=== PATIENT | male | born 1975 | race Caucasian/White ===

== ENCOUNTER → 2018-05-09 13:37 | Outpatient (CLI) | payer SELFPAY ==
[2018-05-09 15:35] LABS: International Normalized Ratio 2.3; Prothrombin Time (Protime)PT. 25.5 SECONDS (11.7-14.9)
== END ==
DX: D68.62 Lupus anticoagulant syndrome (principal); I26.99 Other pulmonary embolism without acute cor pulmonale; I82.409 Acute embolism and thrombosis of unspecified deep veins of unspecified lower extremity
CPT/HCPCS: 36415; 85610

== ENCOUNTER 2018-05-27 11:32 | Outpatient (RCR) | payer SELFPAY ==
[2018-05-16 16:14] LABS: International Normalized Ratio 3.1; Prothrombin Time (Protime)PT. 31.8 SECONDS (11.7-14.9)
[2018-05-21 13:36] LABS: International Normalized Ratio 2.9; Prothrombin Time (Protime)PT. 30.5 SECONDS (11.7-14.9)
[2018-05-27 12:31] LABS: International Normalized Ratio 2.7; Prothrombin Time (Protime)PT. 28.8 SECONDS (11.7-14.9)
== END 2018-05-31 11:18 | disposition home or self-care (01) ==
LOC: LAB 11:32
DX: D68.62 Lupus anticoagulant syndrome (principal); I26.99 Other pulmonary embolism without acute cor pulmonale; I82.409 Acute embolism and thrombosis of unspecified deep veins of unspecified lower extremity
CPT/HCPCS: 36415; 85610

== ENCOUNTER 2018-07-01 13:45 | Outpatient (RCR) | payer SELFPAY ==
[2018-06-03 12:46] LABS: International Normalized Ratio 2.7; Prothrombin Time (Protime)PT. 29.2 SECONDS (11.7-14.9)
[2018-06-20 13:02] LABS: International Normalized Ratio 1.7; Prothrombin Time (Protime)PT. 19.8 SECONDS (11.7-14.9)
[2018-06-24 13:08] LABS: International Normalized Ratio 2.1; Prothrombin Time (Protime)PT. 23.2 SECONDS (11.7-14.9)
[2018-07-01 16:28] LABS: International Normalized Ratio 1.8
== END 2018-07-01 14:45 | disposition home or self-care (01) ==
LOC: LAB 13:45
DX: D68.62 Lupus anticoagulant syndrome (principal); I26.99 Other pulmonary embolism without acute cor pulmonale; I82.409 Acute embolism and thrombosis of unspecified deep veins of unspecified lower extremity
CPT/HCPCS: 36415; 85610

== ENCOUNTER 2018-07-11 10:40 | Outpatient (RCR) | payer OTHER, SELFPAY ==
[2018-07-11 12:10] LABS: International Normalized Ratio 2.4; Prothrombin Time (Protime)PT. 25.9 SECONDS (11.7-14.9)
== END 2018-07-11 11:40 | disposition home or self-care (01) ==
LOC: LAB 10:40
DX: D68.62 Lupus anticoagulant syndrome (principal); I26.99 Other pulmonary embolism without acute cor pulmonale; I82.409 Acute embolism and thrombosis of unspecified deep veins of unspecified lower extremity
CPT/HCPCS: 36415; 85610

== ENCOUNTER 2018-08-09 11:35 | Outpatient (RCR) | payer OTHER, SELFPAY ==
[2018-08-09 13:31] LABS: International Normalized Ratio 2.6; Prothrombin Time (Protime)PT. 27.6 SECONDS (11.7-14.9)
== END 2018-08-29 14:32 | disposition home or self-care (01) ==
LOC: LAB 11:35
DX: D68.62 Lupus anticoagulant syndrome (principal); I26.99 Other pulmonary embolism without acute cor pulmonale; I82.409 Acute embolism and thrombosis of unspecified deep veins of unspecified lower extremity
CPT/HCPCS: 36415; 85610

== ENCOUNTER → 2018-08-28 16:44 | Outpatient (CLI) | payer OTHER, SELFPAY ==
[2018-08-28 15:33] VITALS: BMI 44.3
[2018-08-28 17:37] LABS: Absolute Lymphocyte Count 1.67 X10^3/ul (0.83-4.51); Absolute Neutrophil Count 4.2 X10^3/uL (2.0-7.7); Basophil# 0.03 X10^3/uL; Basophil% 0.5 % (0-1); Eosinophils% 1.5 % (0-5); Hematocrit 42.5 % (40-54); Hemoglobin 14.7 g/dl (13.0-16.5); Lymphocyte # 1.67 X10^3/ul (4.0); Lymphocyte % 25.8 % (19-41); Mean Corp Hgb Conc 34.6 g/gl (32-36); Mean Corpuscular Hgb 30.5 pg (27.0-32.0); Mean Corpuscular Volume 88.2 fL (80-94); Mean Platelet Vol. 10.6 fl (6.2-12.0); Monocyte# 0.42 X10^3/uL; Monocyte% 6.5 % (0-10); Neutrophil # 4.17 X10^3/uL (2.7-7.7); Neutrophil % 64.5 % (47-70); Platelet Count 251 K/mm3 (150-450); RBC Distribution Width SD 41.4 fl (35.1-43.9); Red Blood Count 4.82 M/mm3 (4.6-6.2); White Blood Count 6.5 K/mm3 (4.4-11.0)
[2018-08-28 17:41] LABS: POSITIVE COUNT NO; POSITIVE DIFFERENTIAL NO; POSITIVE MORPHOLOGY NO
[2018-08-28 17:59] LABS: ALB/GLOB Ratio 1.1 RATIO (0.9-2.4); AST(SGOT) 35 U/L (15-37); Alanine Aminotransfer ALT/SGPT 71 U/L (16-61); Albumin, Serum 3.8 g/dL (3.2-5.0); Alkaline Phosphatase 57 U/L (45-117); Anion Gap 8 (5-15); BUN 21 mg/dL (7-18); BUN/Creat Ratio 22.6 RATIO (10-20); CRP < 2.90 mg/L (0.0-3.0); Calcium,Total 8.6 mg/dL (8.5-10.1); Chloride 104 mmol/L (98-107); Creatinine, Serum 0.93 mg/dL (0.70-1.30); EST Glomerular Filtration Rate 94 mL/min (>60); Est Glom Filt Rate - Afr Amer 114 mL/min (>60); Globulin 3.4 g/dL (2.2-4.2); Glucose 91 mg/dL (74-106); LDH 229 U/L (87-241); Protein, Total 7.2 g/dL (6.4-8.2); Sodium Level 139 mmol/L (136-145); Uric Acid 6.4 mg/dL (3.5-7.2)
[2018-08-28 18:01] LABS: Erythrocyte Sedimentation Rate 2 mm/hr (0-15)
[2018-08-28 18:19] LABS: International Normalized Ratio 2.4; Prothrombin Time (Protime)PT. 26.4 SECONDS (11.7-14.9)
[2018-08-28 18:20] LABS: Partial Thromboplast Time 51.3 Seconds (24.1-36.2)
[2018-09-01 10:14] LABS: ANTINUCLEAR ANTIBODIES DIRECT Positive (Negative)
== END ==
PROVIDERS: Referring Provider Internal Medicine Medical Oncology; Visit Provider Internal Medicine Medical Oncology
DX: Z79.01 Long term (current) use of anticoagulants (principal); Z86.711 Personal history of pulmonary embolism; Z86.718 Personal history of other venous thrombosis and embolism
CPT/HCPCS: 36415; 80053; 83615; 84550; 85025; 85610; 85652; 85730; 86038; 86140

== ENCOUNTER → 2018-10-22 14:22 | Outpatient (CLI) | payer OTHER, SELFPAY ==
[2018-09-04 14:48] VITALS: BMI 43.8
[2018-10-22 15:21] LABS: Color, Urine Yellow (Yellow); Glucose, Dipstick Normal (Normal); Ketone-Dipstick Negative (Negative); Leukocyte Esterase-Dipstick Negative /ul (Negative); Nitrite-Dipstick Negative (Negative); Occult Blood-Urine Negative /ul (Negative); Protein-Dipstick Negative (Negative); Urine Bilirubin Dipstick Negative (Negative); Urine Clarity Clear (Clear); Urine Urobilinogen Normal (Normal)
[2018-10-22 15:30] LABS: EXAGEN MAILED SPECIMEN
[2018-10-22 15:41] LABS: Absolute Lymphocyte Count 2.02 X10^3/ul (0.83-4.51); Absolute Neutrophil Count 4.9 X10^3/uL (2.0-7.7); Basophil# 0.03 X10^3/uL; Basophil% 0.4 % (0-1); Eosinophil# 0.13 X10^3/uL; Eosinophils% 1.7 % (0-5); Hematocrit 44.6 % (40-54); Hemoglobin 15.5 g/dl (13.0-16.5); Lymphocyte # 2.02 X10^3/ul (4.0); Lymphocyte % 25.8 % (19-41); Mean Corp Hgb Conc 34.8 g/gl (32-36); Mean Corpuscular Hgb 30.1 pg (27.0-32.0); Mean Corpuscular Volume 86.6 fL (80-94); Mean Platelet Vol. 10.5 fl (6.2-12.0); Monocyte# 0.69 X10^3/uL; Monocyte% 8.8 % (0-10); Neutrophil # 4.91 X10^3/uL (2.7-7.7); Neutrophil % 62.8 % (47-70); Platelet Count 253 K/mm3 (150-450); RBC Distribution Width CV 13.1 % (11.6-14.6); Red Blood Count 5.15 M/mm3 (4.6-6.2); White Blood Count 7.8 K/mm3 (4.4-11.0)
[2018-10-22 15:55] LABS: POSITIVE COUNT NO; POSITIVE DIFFERENTIAL NO; POSITIVE MORPHOLOGY NO
[2018-10-22 16:08] LABS: ALB/GLOB Ratio 1.2 RATIO (0.9-2.4); AST(SGOT) 47 U/L (15-37); Alanine Aminotransfer ALT/SGPT 73 U/L (16-61); Albumin, Serum 4.2 g/dL (3.2-5.0); Alkaline Phosphatase 70 U/L (45-117); Anion Gap 7 (5-15); BUN 12 mg/dL (7-18); BUN/Creat Ratio 14.1 RATIO (10-20); Calcium,Total 8.9 mg/dL (8.5-10.1); Chloride 103 mmol/L (98-107); Creatinine, Serum 0.85 mg/dL (0.70-1.30); EST Glomerular Filtration Rate 104 mL/min (>60); Est Glom Filt Rate - Afr Amer 126 mL/min (>60); Globulin 3.5 g/dL (2.2-4.2); Glucose 75 mg/dL (74-106); Potassium 3.8 mmol/L (3.5-5.1); Protein, Total 7.7 g/dL (6.4-8.2); Protein, Urine (Random) < 6.0 mg/dL (<11.9); Sodium Level 137 mmol/L (136-145)
== END ==
PROVIDERS: Family Provider Surgery; PCP Surgery; Referring Provider Internal Medicine Rheumatology; Visit Provider Internal Medicine Rheumatology
DX: D68.61 Antiphospholipid syndrome (principal); R76.0 Raised antibody titer; R76.8 Other specified abnormal immunological findings in serum; I26.99 Other pulmonary embolism without acute cor pulmonale; I10 Essential (primary) hypertension; G47.33 Obstructive sleep apnea (adult) (pediatric)
CPT/HCPCS: 36415; 80053; 81002; 82570; 84156; 85025

== ENCOUNTER → 2019-02-04 15:15 | Outpatient (CLI) | payer OTHER, SELFPAY ==
[2018-11-27 14:13] VITALS: BMI 42.1
[2019-02-04 17:32] LABS: Absolute Lymphocyte Count 1.74 X10^3/uL (0.83-4.51); Absolute Neutrophil Count 4.9 X10^3/uL (2.0-7.7); Basophil# 0.05 X10^3/uL; Basophil% 0.7 % (0-1); Eosinophil# 0.14 X10^3/uL; Eosinophils% 1.9 % (0-5); Hematocrit 43.8 % (40-54); Hemoglobin 14.8 g/dL (13.0-16.5); Lymphocyte # 1.74 X10^3/ul (4.0); Lymphocyte % 23.1 % (19-41); Mean Corp Hgb Conc 33.8 g/dL (32-36); Mean Corpuscular Hgb 29.8 pg (27.0-32.0); Mean Corpuscular Volume 88.3 fL (80-94); Mean Platelet Vol. 10.4 fl (6.2-12.0); Monocyte# 0.61 X10^3/uL; Monocyte% 8.1 % (0-10); NRBC Flagged by Analyzer 0 % (0-5); Neutrophil # 4.93 X10^3/uL (2.7-7.7); Neutrophil % 65.4 % (47-70); Platelet Count 241 K/mm3 (150-450); RBC Distribution Width CV 12.4 % (11.6-14.6); RBC Distribution Width SD 40.1 fl (35.1-43.9); Red Blood Count 4.96 M/mm3 (4.6-6.2); White Blood Count 7.5 K/mm3 (4.4-11.0)
[2019-02-04 18:01] LABS: ALB/GLOB Ratio 1.2 RATIO (0.9-2.4); AST(SGOT) 38 U/L (15-37); Alanine Aminotransfer ALT/SGPT 79 U/L (16-61); Alkaline Phosphatase 51 U/L (45-117); Anion Gap 7 (5-15); BUN 13 mg/dL (7-18); BUN/Creat Ratio 14.6 RATIO (10-20); Calcium,Total 8.9 mg/dL (8.5-10.1); Chloride 103 mmol/L (98-107); Creatinine, Serum 0.89 mg/dL (0.70-1.30); EST Glomerular Filtration Rate 99 mL/min (>60); Est Glom Filt Rate - Afr Amer 120 mL/min (>60); Globulin 3.3 g/dL (2.2-4.2); Glucose 86 mg/dL (74-106); Potassium 3.6 mmol/L (3.5-5.1); Protein, Total 7.3 g/dL (6.4-8.2); Sodium Level 138 mmol/L (136-145)
== END ==
PROVIDERS: Referring Provider Internal Medicine Rheumatology; Visit Provider Internal Medicine Rheumatology
DX: D68.61 Antiphospholipid syndrome (principal); I26.99 Other pulmonary embolism without acute cor pulmonale; I10 Essential (primary) hypertension; G47.33 Obstructive sleep apnea (adult) (pediatric)
CPT/HCPCS: 36415; 80053; 85025

== ENCOUNTER → 2019-03-04 15:34 | Outpatient (CLI) | payer OTHER, SELFPAY ==
[2018-11-27 14:13] VITALS: BMI 42.1
[2019-03-04 16:23] LABS: Absolute Lymphocyte Count 1.46 X10^3/uL (0.83-4.51); Absolute Neutrophil Count 4.6 X10^3/uL (2.0-7.7); Basophil# 0.05 X10^3/uL; Basophil% 0.7 % (0-1); Eosinophil# 0.11 X10^3/uL; Eosinophils% 1.6 % (0-5); Hematocrit 44.8 % (40-54); Hemoglobin 15.5 g/dL (13.0-16.5); Lymphocyte # 1.46 X10^3/ul (4.0); Lymphocyte % 21.4 % (19-41); Mean Corp Hgb Conc 34.6 g/dL (32-36); Mean Corpuscular Hgb 29.5 pg (27.0-32.0); Mean Corpuscular Volume 85.3 fL (80-94); Mean Platelet Vol. 10.1 fl (6.2-12.0); Monocyte# 0.51 X10^3/uL; Monocyte% 7.5 % (0-10); NRBC Flagged by Analyzer 0 % (0-5); Neutrophil # 4.57 X10^3/uL (2.7-7.7); Platelet Count 234 K/mm3 (150-450); RBC Distribution Width CV 12.5 % (11.6-14.6); RBC Distribution Width SD 38.7 fl (35.1-43.9); Red Blood Count 5.25 M/mm3 (4.6-6.2); White Blood Count 6.8 K/mm3 (4.4-11.0)
[2019-03-04 16:30] LABS: International Normalized Ratio 3.4; Prothrombin Time (Protime)PT. 34.5 SECONDS (11.7-14.9)
[2019-03-04 16:46] LABS: ALB/GLOB Ratio 1.1 RATIO (0.9-2.4); AST(SGOT) 39 U/L (15-37); Alanine Aminotransfer ALT/SGPT 88 U/L (16-61); Albumin, Serum 4.1 g/dL (3.2-5.0); Alkaline Phosphatase 57 U/L (45-117); Anion Gap 7 (5-15); BUN 14 mg/dL (7-18); BUN/Creat Ratio 15.5 RATIO (10-20); Calcium,Total 8.9 mg/dL (8.5-10.1); Chloride 105 mmol/L (98-107); EST Glomerular Filtration Rate 97 mL/min (>60); Est Glom Filt Rate - Afr Amer 117 mL/min (>60); Globulin 3.7 g/dL (2.2-4.2); Glucose 97 mg/dL (74-106); Potassium 3.7 mmol/L (3.5-5.1); Protein, Total 7.8 g/dL (6.4-8.2); Sodium Level 136 mmol/L (136-145)
[2019-03-07 08:08] LABS: Dilute Prothrombin Time (dPT) 132.6 sec (0.0-55.0); Dilute Russell Viper Venom 95.9 sec (0.0-47.0); Hexagonal Phase Phospholipid 2 20 sec (0-11); PTT-LA Mix 68.3 sec (0.0-48.9); Thrombin Time 25.4 sec (0.0-23.0); dPT Confirm Ratio 1.67 Ratio (0.00-1.40)
[2019-03-07 12:09] LABS: Interpretation Comment: (.)
== END ==
PROVIDERS: Referring Provider Internal Medicine Medical Oncology; Visit Provider Internal Medicine Medical Oncology
DX: I82.90 Acute embolism and thrombosis of unspecified vein (principal); R76.0 Raised antibody titer; Z79.01 Long term (current) use of anticoagulants
CPT/HCPCS: 36415; 80053; 85025; 85610; 85730

== ENCOUNTER 2022-05-01 10:35 | Emergency (ER) | payer BC, SELFPAY ==
[2022-05-01 10:36] VITALS: BP 134/72; PULSE 73; RESP 16; TEMP 36.8; O2SAT 95; BMI 44.7
--- NOTE | 2022-05-01 11:02 | CT_ITS ---
STUDY: CT BRAIN WITHOUT CONTRAST REASON FOR EXAM: Male, 47 years old. Head trauma due to a fall. RADIATION DOSAGE (If Supplied By Facility): CTDIvol = ( 44.99 ) mGy, DLP = ( 863.60 ) mGycm TECHNIQUE: Transaxial CT imaging of the brain was performed without administration of intravenous contrast material. Individualized dose optimization techniques were used for this CT. COMPARISON: No relevant priors. FINDINGS: Normal soft tissue structures. Normal calvarium. Normal size ventricles and extra-axial spaces for the patient''s age. Normal white matter tracts of the cerebral hemispheres. Normal basal ganglia and thalami. Normal brainstem. Normal cerebellum. There is no intracranial hemorrhage. There are no findings of an acute ischemic infarction. Normal visualized paranasal sinuses. CT/Brain/Head without Contrast IMPRESSION: Normal unenhanced CT scan of the brain. Electronically Signed: Aldo Rosen MD at 11:54 EDT ,
--- NOTE | 2022-05-01 11:03 | ED.VIS.FALL ---
HPI HPI - Fall History of Present Illness Chief Complaint: Fall Occured/Mechanism Fall down steps #: 4-5 Usually ambulates: Without assistance Pain/Injury Location: right thigh, head Quality of Pain: Aching Current Severity: Mild Maximum Severity: Moderate Worsened by: Walking, bending right knee Relieved by: Remaining still Associated Symptoms Associated Symptoms: Negative for Parasthesias, Weakness, Loss of function, Inability to ambulate, Loss of consciousness or Amnesia Narrative Narrative: Patient states he slid while walking to some steps to go down, and missed stepped as a result, falling down 4-5 steps accidentally. He mainly fell onto his right side, injuring his right thigh, and then hit the back of his head on the floor that was wood at the end of the fall. No loss of consciousness. 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 His last INR check was maybe 2 weeks ago. He denies any bleeding. No headache, nausea, vomiting, vision changes, focal neurologic symptoms, injury to the trunk or upper extremities. He is able to walk now but requires a cane in order to bear weight with his right lower extremity which hurts in the thigh. He can bend it but states he feels muscle spasms in the thigh/quadriceps. PFSH [facility] Medical History Dyspnea on exertion Encounter for education Lupus anticoagulant disorder Obese Presence of IVC filter Pulmonary emboli Saddle embolus Sleep apnea Thrombocytopenia Home Medications lisinopril 20 mg-hydrochlorothiazide 25 mg tablet 10 - 12.5 mg PO DAILY #90 tabs 09/04/18 [Rx Last Taken Unknown] warfarin 2.5 mg tablet 2.5 mg PO DAILY 30 days #30 tabs 10/10/21 [Rx Last Taken Unknown] cyclophosphamide 50 mg tablet 200 mg PO DAILY Lupus anticoagulant syndrome #120 tabs 11/17/21 [Rx Last Taken Unknown] ondansetron 4 mg disintegrating tablet 4 mg PO Q8H PRN nausea and vomiting #30 tabs 11/17/21 [Rx Last Taken Unknown] warfarin 5 mg tablet See Rx Instructions .Route .COMPLEX #60 tabs 04/10/22 [Rx Last Taken Unknown] Allergy/AdvReac Type Severity Reaction Status Date / Time Penicillins Allergy Rash Verified 05/01/22 10:37 Social History Smoking Status: Never smoker Electronic Cigarette Use: not used second hand exposure: No alcohol intake: current alcohol intake frequency: a few times a week Alcohol type: beer substance use type: does not use ROS ROS ED Constitutional Constitutional ED: Denies chills or fever(s) Eyes Eyes: Denies change in vision or diplopia ENT ENT ED: Denies ear pain, epistaxis, facial pain or rhinorrhea Cardiovascular Cardiovascular: Denies chest pain or palpitations Respiratory/Chest Respiratory/Chest: Denies cough or dyspnea Gastrointestinal Gastrointestinal: Denies abdominal pain, diarrhea, melena, nausea or vomiting Genitourinary Genitourinary ED: Denies dysuria or hematuria Musculoskeletal Musculoskeletal: Reports extremity pain; Denies back pain or neck pain Integumentary Denies abscess, Abrasions, laceration or rash Neurologic Neurologic: Denies confusion, headache(s), paresthesias or weakness Hematologic/Lymphatic Hematologic/Lymphatic: Reports easy bleeding and easy bruising EXAM Physical Exam Const Vital Signs: 05/01/22 10:36 05/01/22 13:18 Temperature 98.2 F Temperature Source Temporal Pulse Rate 73 Respiratory Rate 16 16 Blood Pressure 134/72 H Blood Pressure Mean 92 Pulse Ox 95 Oxygen Delivery Method Room Air Room Air Positive well nourished, well developed and obese General Appearance ED: well developed and NAD Nutritional Appearance: obese HEENT Reports TM's clear and nasal mucous membranes and turbinates normal HEENT Narrative: Right TM completely occluded by cerumen atraumatic Face and Sinus: Negative for facial tenderness Tympanic Membrane ED: Yes TM's clear Eyes PERRL and EOMs intact bilaterally Visual Acuity: other Other Details: no entrapment or pain with extraocular movements Neck full ROM and supple General: Negative for tenderness Chest Wall inspection of chest normal and palpation of chest normal Chest: symmetrical chest wall rise; Negative for crepitus or tenderness Resp normal respiratory effort and clear to auscultation bilaterally Percussion: other equal BS bilat Cardio no murmurs Rate: regular rate Rhythm: regular rhythm GI normal to inspection, nondistended, normoactive bowel sounds, soft to palpation and non-tender GI Narrative: No truncal ecchymoses/signs of trauma Back/Spine normal ROM Cervical Spine: Negative for cervical spine tenderness Thoracic Spine / Upper Back: Negative for thoracic spinal tenderness Lumbar Spine / Lower Back: Negative for lumbar spinal tenderness Extremity normal to inspection and full ROM Extremity Narrative: Mildly tender in the right quadriceps, more laterally in the vastus lateralis but there were no deformities, he is full range of motion of the hip and knee without any pain in either 1 of those joints in the right lower extremity, the pelvis is stable to AP compression and nontender. Full range of motion without any tenderness or pain of the other 3 extremities and no tenderness elsewhere in the right lower. General Extremety ED: Yes tenderness Neuro oriented x3, CN's II-XII intact bilaterally, moves all extremities, no focal motor deficits and no sensory deficits noted [place] Coma Scale: document GCS findings Spontaneous Obeys Commands Oriented 15 Sensorium / Orientation: awake and alert Psych mental status grossly normal and thought process normal Skin no wounds Lesions: no lesions Rashes: no rashes MDM MDM MDM Narrative Medical decision making narrative: Femur x-ray 4 views of mitral rotation normal. Radiology in agreement. CT of the head is negative, his INR is 2.6 therapeutic. He does not have symptoms of a concussion. He is reassured, offered a dose of tramadol for his discomfort, and he will take Tylenol at home. I think most of his pain is muscular I do not think this is an occult hip fracture, we discussed reasons to return comfortable with that plan. Lab Data Attestation: I reviewed the patient's lab results. Labs: Laboratory Results - last 24 hr 05/01/22 11:18 PT 27.7 H INR 2.6 Radiography Diagnostic Testing: Clinical Impression(s) from Imaging Studies Brain CT 05/01/22 11:02 IMPRESSION: Normal unenhanced CT scan of the brain. Electronically Signed: Aldo Rosen MD at 11:54 EDT , Femur X-Ray 05/01/22 11:45 IMPRESSION: Normal x-ray examination of the femur. Electronically Signed: Aldo Rosen MD at 11:56 EDT , Discharge Plan Triage Chief Complaint: Fall Other Complaint: Lower Extremity Injury ED Provider: Og Lassiter Dx/Rx/DC Orders Clinical Impression: Closed head injury without concussion, Contusion of right thigh, Fall from slip, trip, or stumble, Anticoagulated Instructions: ED Soft Tissue Contusion, ED Head Injury (Adult) Prescriptions: No Action cyclophosphamide 50 mg tablet 200 mg PO DAILY Qty: 120 2RF Rx Instructions: give with food (meal/snack) ondansetron 4 mg tablet,disintegrating 4 mg PO Q8H PRN (Reason: nausea and vomiting) Qty: 30 0RF lisinopril-hydrochlorothiazide 1 EACH tablet 10 - 12.5 mg PO DAILY Qty: 90 3RF warfarin 2.5 mg tablet 2.5 mg PO DAILY 30 Days Qty: 30 3RF Rx Instructions: 11.25 mg daily warfarin 5 mg tablet See Rx Instructions .ROUTE .COMPLEX Qty: 60 0RF Dose Instruction: take 2 tablets by mouth once daily Rx Instructions: take 2 tablets by mouth once daily Primary Care Provider: Care Physician,No Primary Referrals: Doctor,Your [Non-Staff] - As Needed Disposition Disposition: Home, Self Care
--- NOTE | 2022-05-01 11:45 | RAD_ITS ---
STUDY: X-RAY - RIGHT FEMUR REASON FOR STUDY: Male, 47 years old. Injury/fall TECHNIQUE: 4 view(s) of the femur. COMPARISON: None. FINDINGS: Normal visualized femur. Normal visualized soft tissue structure. RAD/Femur Min 2 Views IMPRESSION: Normal x-ray examination of the femur. Electronically Signed: Aldo Rosen MD at 11:56 EDT ,
[2022-05-01 11:57] LABS: International Normalized Ratio 2.6; Prothrombin Time (Protime)PT. 27.7 SECONDS (11.7-14.9)
--- NOTE | 2022-05-01 13:04 | CM.ED ---
SW Note MITUL reviewed tracker and noted that patient has no PCP. MITUL met with patient and he reports he has a PCP however, he can not recall the name of his PCP. No further SW needs at this time. SW remains available. Miriam OSBORNE
[2022-05-01 13:18] VITALS: RESP 16
[2022-05-01] MEDS: traMADol 50 MG Tablet PO (13:42)
== END 2022-05-01 13:43 | disposition home or self-care (01) ==
PROVIDERS: Emergency Provider Emergency Medicine; Visit Provider Emergency Medicine
DX: S09.90XA Unspecified injury of head, initial encounter (principal); S70.11XA Contusion of right thigh, initial encounter; E66.9 Obesity, unspecified; G47.30 Sleep apnea, unspecified; W10.9XXA Fall (on) (from) unspecified stairs and steps, initial encounter; Z79.01 Long term (current) use of anticoagulants; Z86.718 Personal history of other venous thrombosis and embolism
CPT/HCPCS: 70450; 73552; 85610; 99283

== ENCOUNTER 2022-05-29 12:59 | Outpatient (RCR) | payer BC, SELFPAY ==
[2022-05-29 11:35] LABS: International Normalized Ratio 2.5; Prothrombin Time (Protime)PT. 26.8 SECONDS (11.7-14.9)
[2022-05-29 19:23] LABS: Xtra Tube EP Lab EXTRA TUBE
== END 2022-05-31 23:59 ==
LOC: PAVLAB 12:59
PROVIDERS: Visit Provider Nurse Practitioner Family
DX: I82.409 Acute embolism and thrombosis of unspecified deep veins of unspecified lower extremity (principal)
CPT/HCPCS: 36415; 85610

== ENCOUNTER 2023-06-06 19:01 | Observation (INO) | payer BC, SELFPAY ==
[2023-06-06] VITALS (8 sets, daily range): BP systolic 101–152; BP diastolic 77–96; PULSE 92–118; RESP 18–24; TEMP 36.3–36.8; O2SAT 92–98; BMI 45.6; BMI 45.1
--- NOTE | 2023-06-06 19:15 | CT_ITS ---
We are attempting to reach an attending provider to discuss findings. An addendum with communication details will be sent when the communication is complete. STUDY: CTA CHEST REASON FOR EXAM: Male, 48 years old. dyspnea and PE hx RADIATION DOSAGE (If Supplied By Facility): CTDIvol = ( 19.79 ) mGy, DLP = ( 1229.70 ) mGycm TECHNIQUE: The examination was performed with the intravenous administration of IV 100mL Isovue-370. Post-processing of the angiographic images was performed, with multiplanar reformation and 3D reconstruction. Individualized dose optimization techniques were used for this CT. COMPARISON: None. FINDINGS: Unremarkable thyroid. Large acute pulmonary emboli distal right and left main pulmonary artery extending into left upper and lower lobar arteries, right upper, middle, and lower lobar arteries with extension into apical left upper segment, anterior right upper segment, medial right middle lobe segment, and multiple left lower lobe segments. No aortic dissection or aneurysmal dilatation. Normal heart and pericardium. Abnormal RV LV ratio of 2.3. No densely calcified coronary atherosclerosis. No mediastinal or hilar adenopathy. Unremarkable esophagus. No airspace consolidation, effusion, pneumothorax. No pulmonary infarct. Normal osseous structures. Hepatic steatosis. CT/CTA Chest W/WO Contrast IMPRESSION: Large bilateral distal main pulmonary artery emboli extending into all lobar branches and multiple segmental branches without evidence of right heart strain. No evidence of acute airspace disease. Hepatic steatosis. Electronically Signed: Anand Whitehead MD at 20:48 EST ,
--- NOTE | 2023-06-06 19:17 | EDS_ITS ---
HPI History of Present Illness Chief Complaint: Shortness of Breath Informant: patient Onset/Context/Timing Onset: Today and Hours Context: gradual Timing: Continuous Quality: Positive for Dyspnea on exertion Current Severity: Mild Maximum Severity: Moderate Worsened by: Exertion Relieved by: Rest Associated Symptoms cough Chest Pain: Positive for None Narrative Narrative: 48-year-old male history of prior PEs and DVTs secondary to lupus anticoagulant. Has an IVC filter. Was on warfarin because another blood thinner was not working. They took him off of it 2+ months ago. He believes he may have another PE. Denies any chest pain. Says he is short of breath and has accelerated heart rate. His pulse ox at home was in the low 80s. He denies any hemoptysis. PE Risk Factors: Positive for Prior DVT or PE; Negative for Cancer, OCP + Smoking + > 35, Recent immobilization, Recent surgery or Recent travel Prior similar symptoms: Yes Recent Illness/Hospitalization: No PFSH PFSH Medical History Dyspnea on exertion Encounter for education Lupus anticoagulant disorder Obese Presence of IVC filter Pulmonary emboli Saddle embolus Sleep apnea Thrombocytopenia Home Medications lisinopril 20 mg-hydrochlorothiazide 25 mg tablet 10 - 12.5 mg (0.2222 - 0.2778 x 20-25 mg) PO DAILY #90 tabs 09/04/18 [Rx Last Taken Unknown] ondansetron 4 mg disintegrating tablet 4 mg PO Q8H PRN nausea and vomiting #30 tabs 11/17/21 [Rx Last Taken Unknown] warfarin 2.5 mg tablet 2.5 mg .Route .COMPLEX #30 tabs 06/06/23 [Rx Last Taken Unknown] warfarin 5 mg tablet See Rx Instructions .Route .COMPLEX #60 tabs 06/06/23 [Rx Last Taken Unknown] Allergy/AdvReac Type Severity Reaction Status Date / Time Penicillins Allergy Rash Verified 06/06/23 19:03 Surgical History H/O right knee surgery Social History Smoking Status: Never smoker Electronic Cigarette Use: not used second hand exposure: No alcohol intake: current alcohol intake frequency: a few times a week Alcohol type: beer substance use type: does not use ROS ROS ED ROS Narrative Shortness of breath. Accelerated heart rate. No chest pain. No hemoptysis. Review of Systems ROS Unobtainable: Denies due to encephalopathy Constitutional Constitutional ED: Denies chills or fever(s) Eyes Eyes: Denies blurry vision ENT ENT ED: Denies ear pain Cardiovascular Cardiovascular: Reports racing heartbeat; Denies chest pain or palpitations Respiratory/Chest Respiratory/Chest: Reports cough, dyspnea and dyspnea on exertion Gastrointestinal Gastrointestinal: Denies abdominal pain Genitourinary Genitourinary ED: Denies dysuria or hematuria Musculoskeletal Musculoskeletal: Denies arthralgias Integumentary Denies abscess Neurologic Neurologic: Denies headache(s) Psychiatric Psychiatric: Denies anxiety Endocrine Endocrinology: Denies cold intolerance Hematologic/Lymphatic Hematologic/Lymphatic: Denies easy bleeding, easy bruising or lymphadenopathy Allergic/Immunologic Allergic/Immunologic ED: Denies mouth swelling, tongue swelling or urticaria EXAM Physical Exam Narrative Exam Narrative: Well-appearing 48-year-old male. Vital signs are stable. Pulse ox is 94% on room air. Sitting up in bed relaxes heart rate 118. He does not look septic or toxic. No distress. H EENT exam unremarkable. Moist weeks membranes. Neck nontender no JVD. Lungs clear to auscultation bilaterally. Heart tachycardic rate about 120 no murmur. Chest wall nontender. Abdomen soft nontender. Moving all 4 extremities. Calves are nontender without edema or cords. Neurologically is awake and alert with no focal motor deficits. Const Vital Signs: 06/06/23 19:02 06/06/23 19:22 Temperature 97.4 F L Temperature Source Temporal Pulse Rate 118 H Respiratory Rate 20 H Respiratory Effort Normal Respiratory Depth Normal Respiratory Pattern Normal Blood Pressure 152/90 H Blood Pressure Mean 110 Pulse Ox 94 Oxygen Delivery Method Room Air Room Air Positive well nourished and well developed; Negative for cachectic, contractures or unkempt General Appearance ED: well developed and NAD; Negative for unkempt, cachectic, contractures or pallor Nutritional Appearance: Negative for cachectic HEENT Reports moist mucous membranes; Denies dry mucous membranes atraumatic; Negative for trauma or tenderness Mouth ED: No dry mucous membranes Mouth: No dry mucous membranes Eyes PERRL and EOMs intact bilaterally General Eye ED: Negative for pale conjunctiva or scleral icterus Neck no lymphadenopathy, supple, no meningeal signs and no JVD General: Negative for tenderness Lymph Lymphatic: Negative for other Chest Wall Chest: Negative for other Resp normal respiratory effort and clear to auscultation bilaterally Effort and Inspection: Negative for pain with movement Auscultation: Negative for rales, rhonchi or wheezes Cardio regular rhythm, S1 normal heart sound, S2 normal heart sound and no murmurs; Negative for regular rate Rate: tachycardic GI non-tender, non-distended and no masses Inspection: Negative for other Palpation: soft; Negative for tender or guarding Back/Spine no CVA tenderness and normal to inspection General Back: Negative for CVA tenderness Extremity normal to inspection General Extremety ED: Negative for edema or tenderness General Extremity: Negative for edema Neuro oriented x3 and CN's II-XII intact bilaterally Sensorium / Orientation: alert, oriented to person, oriented to place and oriented to time; Negative for orientation impaired, confused, lethargic or stuporous Speech: speech normal Motor Exam: strength 5/5 throughout Psych mental status grossly normal Appearance: Negative for unkempt Attitude: No agitated Mood & Affect: Negative for depressed, anxious or tearful Thought Process: normal thought process Skin no wounds and skin turgor normal General Skin Exam: Negative for jaundice or pallor Lesions: no lesions Rashes: no rashes MDM MDM MDM Narrative Medical decision making narrative: 48-year-old male history of multiple prior PEs and DVTs with lupus anticoagulant. 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 Believes he may have another PE. Will undergo cardiac/PE workup with a CTA. History & Record Review Discussion w/independent historian: Patient Additional record(s) reviewed:: Prior inpatient record, Prior outpatient record, Prior ED visit and No prior records Lab Data Attestation: I reviewed the patient's lab results. Lab results narrative: CBC normal. White count of 9. H&H of 15 and 44. Platelets slightly low at 133. Electrolytes show sodium 135. Gap 6. Normal BUN of 17 creatinine 0.9. Glucose 106. Troponin slightly elevated 85. Labs: Laboratory Results - last 24 hr 06/06/23 19:18 WBC 9.5 RBC 5.22 Hgb 15.6 Hct 44.9 MCV 86.0 MCH 29.9 MCHC 34.7 RDW Std Deviation 39.3 RDW Coeff of [place] 12.6 Plt Count 133 L MPV 9.9 Immature Gran % (Auto) 0.800 Neut % (Auto) 73.8 H Lymph % (Auto) 16.1 L [place] % (Auto) 7.0 Eos % (Auto) 1.6 Baso % (Auto) 0.7 Absolute Neuts (auto) 7.0 Absolute Lymphs (auto) 1.53 Nucleated RBC % 0 Sodium 135 L Potassium 3.8 Chloride 107 Carbon Dioxide 22.0 Anion Gap 6 BUN 17 Creatinine 0.91 Estim Creat Clear Calc 108.96 Est GFR (MDRD) Af Amer 115 Est GFR (MDRD) Non-Af 95 BUN/Creatinine Ratio 18.7 Glucose 106 Calcium 9.3 Troponin I High Sens 85 H Rhythm Strip Rhythm Strip: Sinus Tach Rate: 102 Ectopy: None EKG Initial EKG: Attestation: I personally reviewed and interpreted this EKG as follows: Interpretation: No Acute Injury Pattern and Sinus Tachycardia Comments: Tachycardia rate of 102. No acute signs of OR or ischemia. Discharge Plan Triage Chief Complaint: Shortness of Breath ED Provider: Robert Conley Dx/Rx/DC Orders Prescriptions: No Action ondansetron 4 mg tablet,disintegrating 4 mg PO Q8H PRN (Reason: nausea and vomiting) Qty: 30 0RF lisinopril-hydrochlorothiazide 1 EACH tablet 10 - 12.5 mg PO DAILY Qty: 90 3RF warfarin 2.5 mg tablet 2.5 mg .ROUTE .COMPLEX Qty: 30 1RF Rx Instructions: 2.5 mg; warfarin 5 mg tablet See Rx Instructions .ROUTE .COMPLEX Qty: 60 0RF Dose Instruction: take 2 tablets by mouth once daily Rx Instructions: take 2 tablets by mouth once daily Primary Care Provider: Care Physician,No Primary Referrals: Care Physician,No Primary [Primary Care Provider] -
[2023-06-06 19:28] LABS: Absolute Lymphocyte Count 1.53 X10^3/uL (0.83-4.51); Basophil# 0.07 X10^3/uL; Basophil% 0.7 % (0-1); Eosinophil# 0.15 X10^3/uL; Eosinophils% 1.6 % (0-5); Hematocrit 44.9 % (40-54); Hemoglobin 15.6 g/dL (13.0-16.5); Lymphocyte # 1.53 X10^3/ul (0.83-4.51); Lymphocyte % 16.1 % (19-41); Mean Corp Hgb Conc 34.7 g/dL (32-36); Mean Corpuscular Hgb 29.9 pg (27.0-32.0); Mean Platelet Vol. 9.9 fl (6.2-12.0); Monocyte# 0.67 X10^3/uL; NRBC Flagged by Analyzer 0 % (0-5); Neutrophil # 7.03 X10^3/uL (2.7-7.7); Neutrophil % 73.8 % (47-70); Platelet Count 133 K/mm3 (150-450); RBC Distribution Width CV 12.6 % (11.6-14.6); RBC Distribution Width SD 39.3 fl (35.1-43.9); Red Blood Count 5.22 M/mm3 (4.6-6.2); White Blood Count 9.5 K/mm3 (4.4-11.0)
[2023-06-06 19:43] LABS: Anion Gap 6 (5-15); BUN 17 mg/dL (7-18); BUN/Creat Ratio 18.7 RATIO (10-20); Calcium,Total 9.3 mg/dL (8.5-10.1); Chloride 107 mmol/L (98-107); Creatinine, Serum 0.91 mg/dL (0.70-1.30); EST Glomerular Filtration Rate 95 mL/min (>60); Est Glom Filt Rate - Afr Amer 115 mL/min (>60); Estimated Creatinine Clearance 108.96 ml/min; Glucose 106 mg/dL (74-106); Potassium 3.8 mmol/L (3.5-5.1); Sodium Level 135 mmol/L (136-145); Troponin-I HS 85 pg/mL (3.0-78.0)
--- NOTE | 2023-06-06 21:56 | HP.PCM.HOS_ITS ---
[facility] - General General Date of Admission: 06/06/23 Date of Service: 06/06/23 Chief Complaint: SOB. 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 Mr. Adeola russo reports his symptoms began approximately 1 day prior to admission with the abrupt onset of dyspnea on exertion that progressed to shortness of breath at rest which was very similar to his previous pulmonary emboli. He also admits to associated accelerated heart rate with an oxygen saturation in the low 80% range which caused him to come in to the ER for further evaluation and treatment. He denies associated chest pain, fever, chills, nausea, vomiting, cough, hemoptysis, recent travel, recent surgery or recent immobilization. He further explained that he was on Coumadin because the other direct oral anticoagulants were apparently not working and his typical dose of Coumadin was 11.5 mg daily. He also mentions that Lovenox has worked for him in the past. In the ER a CT scan of the chest was positive for evidence of pulmonary emboli complicated by clinical evidence of acute hypoxic respiratory insufficiency in the setting of known lupus anticoagulant disorder and failed trial off of Coumadin for anticoagulation compounded by non-STEMI type II with elevated troponin of 85 pg/mL present on admission likely due to acute cardiac strain and he was then admitted to the general medical floor for ongoing care for stay that is expected to be greater than 48 hours. [facility] Medical History (Updated 06/06/23 @ 22:[address] Jin Murray, DO) Dyspnea on exertion Encounter for education Lupus anticoagulant disorder Obese Presence of IVC filter Pulmonary emboli Saddle embolus Sleep apnea Thrombocytopenia Home Medications lisinopril 20 mg-hydrochlorothiazide 25 mg tablet 10 - 12.5 mg (0.2222 - 0.2778 x 20-25 mg) PO DAILY #90 tabs 09/04/18 [Rx Last Taken Unknown] lisinopril 10 mg-hydrochlorothiazide 12.5 mg tablet 1 tab PO QHS high blood pressure 06/06/23 [History Last Taken 06/05/23] warfarin 2.5 mg tablet 2.5 mg .Route .COMPLEX #30 tabs 06/06/23 [Rx Last Taken Unknown] warfarin 5 mg tablet See Rx Instructions .Route .COMPLEX #60 tabs 06/06/23 [Rx Last Taken Unknown] Allergy/AdvReac Type Severity Reaction Status Date / Time Penicillins Allergy Rash Verified 06/06/23 19:03 Surgical History H/O right knee surgery Social History household members: spouse housing: house number of children: 0 service: No current occupational status: unemployed pets and animals: Yes (3 cats) Smoking Status: Never smoker Electronic Cigarette Use: not used second hand exposure: No alcohol intake: current alcohol intake frequency: a few times a week Alcohol type: beer substance use type: does not use ROS ROS Narrative Review of systems: General: Denies fever or chills HENT: Denies headache, denies stuffy nose, denies sore throat EYES: Denies changes in vision Resp: Patient admits to shortness of breath made worse with exertion Cardiac: Denies chest pain but he does admit to heart racing GI: Denies abdominal pain, denies changes in bowel, had some nausea : Denies changes in urination Extremity: Denies swelling Musculoskeletal: Feels somewhat generally weak Neuro: Denies any numbness/tingling Heme: Denies any bleeding or bruising Skin: Denies rashes Psychiatric: No complaints voiced Endocrine: No polyuria The rest of the 14 point ROS was negative except for positives in HPI. Vital Signs Vital Signs Vital Signs: 06/06/23 19:02 06/06/23 19:22 06/06/23 19:15 Temperature 97.4 F L Temperature Source Temporal Pulse Rate 118 H Respiratory Rate 20 H Respiratory Effort Normal Respiratory Depth Normal Respiratory Pattern Normal Blood Pressure 152/90 H Blood Pressure Mean 110 Pulse Ox 94 94 Oxygen Delivery Method Room Air Room Air Room Air Weight Weight: 336 lb 7 oz Body Mass Index (BMI) 45.6 Physical Exam Const alert, oriented x3 and no apparent distress Constitutional Narrative: Patient is morbidly obese and appears short of breath. General Appearance: cooperative HEENT normocephalic, head/scalp atraumatic, hearing grossly normal bilaterally, moist oral mucous membranes and oropharynx normal Eyes PERRL, EOMs intact bilaterally and conjunctivae normal Neck no lymphadenopathy and supple Resp normal respiratory effort, no retractions, no use of accessory muscles and clear to auscultation bilaterally Cardio regular rate and regular rhythm GI normal to inspection, nondistended, normoactive bowel sounds, soft to palpation, non-tender and non-distended GI Narrative: Morbidly obese. Extremity normal to inspection and full ROM Skin Skin Narrative: Patient has no evidence of rash at this time. Neuro oriented x3, CN's II-XII intact bilaterally, moves all extremities and no focal motor deficits Sensorium / Orientation: awake, alert, oriented to person, oriented to place and oriented to time Speech: speech normal Motor Exam: strength 5/5 throughout Psych affect normal Results Medical Records Data Attestation: I reviewed the patient's medical records Lab / Micro Data Attestation: I reviewed the patient's lab results. 06/07/23 04:13 06/07/23 04:13 Labs: Laboratory Results - last 24 hr 06/06/23 19:18: WBC 9.5, RBC 5.22, Hgb 15.6, Hct 44.9, MCV 86.0, MCH 29.9, MCHC 34.7, RDW Std Deviation 39.3, RDW Coeff of Marixa 12.6, Plt Count 133 L, MPV 9.9, Immature Gran % (Auto) 0.800, Neut % (Auto) 73.8 H, Lymph % (Auto) 16.1 L, [place] % (Auto) 7.0, Eos % (Auto) 1.6, Baso % (Auto) 0.7, Absolute Neuts (auto) 7.0, Absolute Lymphs (auto) 1.53, Nucleated RBC % 0, Sodium 135 L, Potassium 3.8, Chloride 107, Carbon Dioxide 22.0, Anion Gap 6, BUN 17, Creatinine 0.91, Estim Creat Clear Calc 108.96, Est GFR (MDRD) Af Amer 115, Est GFR (MDRD) Non-Af 95, BUN/Creatinine Ratio 18.7, Glucose 106, Calcium 9.3, Troponin I High Sens 85 H Rhythm Strip Rhythm Strip: Sinus Tach Rate: 102 Ectopy: None Imagaing Radiology Impression Chest CTA 06/06/23 19:15 IMPRESSION: Large bilateral distal main pulmonary artery emboli extending into all lobar branches and multiple segmental branches without evidence of right heart strain. No evidence of acute airspace disease. Hepatic steatosis. Electronically Signed: Anand Whitehead MD at 20:48 EST , ADDENDUM: 06/06/232104 IMPRESSION: Large bilateral distal main pulmonary artery emboli extending into all lobar branches and multiple segmental branches without evidence of right heart strain. No evidence of acute airspace disease. Hepatic steatosis. N.B. : The above Results were Read Back by Anand Whitehead MD to Robert Conley MD, and understanding confirmed on 06/06/2023 20:58:22 (ET). Electronically Signed: Anand Whitehead MD at 20:48 EST , Assessment & Plan Assessment/Plan (1) Pulmonary embolism: QUALIFIERS: Pulmonary embolism type: multiple subsegmental (without acute cor pulmonale) Qualified Code(s): I26.94 - Multiple subsegmental pulmonary emboli without acute cor pulmonale (2) Lupus anticoagulant disorder: (3) Thrombocytopenia: (4) Morbid obesity: PLAN: Plan 1. 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 Continue IV heparin begun in the ER and adjust per protocol. Check echocardiogram to evaluate for evidence of potential right heart strain. Check lower extremity Dopplers to evaluate for residual clot burden in this patient with previous IVC filter. Give Tylenol as needed for pain or fever. It is important to note that his IVC filter has been removed a long time ago. Finally, we will consult Dr. Bragg of the hematology service to see this patient on rounds in the a.m. for further recommendations with help appreciated in advance. 2. Non-STEMI type II with elevated troponin of 85 pg/mL present on admission likely due to acute cardiac strain arising from #1 - Patient has no symptoms of acute coronary syndrome at this time. We will serial as troponin to be sure. 3. Chronic moderate thrombocytopenia 133 present on admission with patient intolerant to NOACs in the past - Check CBC daily to ensure continued stability of platelet count while on heparin. Hematology will be asked to optimize his treatment regimen to prevent recurrent VTE. 3. Morbid obesity; with BMI of 45.6 this admission - Weight loss will be recommended. Check TSH this admission. 4. Essential hypertension - Resume home medications as previous plus give as needed IV hydralazine for systolic blood pressure greater than 160 mmHg. 5. DVT prophylaxis - Patient already on IV heparin for #1. Total time: Approximately 55 minutes. Charges/Coding Visit Charges Inpatient E&M: 71637 Init Hosp L2
[2023-06-06 22:18] LABS: International Normalized Ratio 1.1; Prothrombin Time (Protime)PT. 14.2 SECONDS (11.7-14.9)
[2023-06-06] MEDS: Heparin Injection (Vial) 5,000 UNIT/ML VIAL 12000 UNIT IV (22:21)
--- NOTE | 2023-06-06 22:25 | ECHOCS_ITS ---
Reason For Study: PE w/LUPUS anticoag syndrome Procedure This was a 2D Doppler, Color Flow transthoracic echocardiogram. The study was technically difficult. Due to morbid obesity. Contrast injection was performed. Exam performed portable in patient room. Left Ventricle Normal LV size. Left ventricular systolic function is normal. The estimated ejection fraction is 60 %. No evidence for diastolic dysfunction. Right Ventricle Mildly dilated right ventricle. Mild to moderate global right ventricular systolic dysfunction. Atria The left and right atria are normal. Mitral Valve The mitral valve is structurally normal. No prolapse or stenosis seen. Tricuspid Valve Normal tricuspid valve. Trivial tricuspid valve insufficiency. Right ventricular systolic pressure estimated to be 40 mmHg. Aortic Valve The aortic valve is not well visualized in the short axis view. There is no aortic stenosis. No aortic valve insufficiency. Pulmonic Valve The pulmonic valve is not well visualized. Great Vessels Normal sized aortic root. Pericardium/Pleural No pericardial effusion. Medication Diluted definity 2.0ml given slow IV push to enhance endocardial definition. MMode/2D Measurements & Calculations LVIDd: 4.2 cm IVSd: 0.95 cm Ao root diam: 3.2 cm LVIDs: 2.9 cm LVPWd: 0.87 cm RVDd: 4.0 cm FS: 30.8 % LAV(MOD-bp): 63.6 ml LA A4 area: 21.8 cm2 LA dimension(2D): 3.1 cm LAV(MOD-bp) Indexed: 24.1 ml/m2 LAV(MOD-sp2): 54.5 ml LAV(MOD-sp4): 59.9 ml TAPSE: 2.1 cm Time Measurements MV dec time: 0.20 sec Doppler Measurements & Calculations MV E max johann: 69.3 cm/sec Lat Peak E' Johann: 15.7 cm/sec Med Peak E' Johann: 11.4 cm/sec MV A max johann: 59.3 cm/sec E/E' lat: 4.4 E/E' med: 6.1 MV E/A: 1.2 MV V2 max: 65.7 cm/sec MV P1/2t max johann: 61.9 cm/sec Ao V2 max: 117.8 cm/sec MV max P.7 mmHg MV P1/2t: 43.0 msec Ao max P.5 mmHg MV V2 mean: 42.3 cm/sec MV dec slope: 421.0 cm/sec2 Ao V2 mean: 84.2 cm/sec MV mean P.80 mmHg MVA(P1/2t): 5.1 cm2 Ao mean P.1 mmHg MV V2 VTI: 14.6 cm Ao V2 VTI: 19.1 cm AV (velocity ratio): 0.97 LV V1 max: 108.3 cm/sec PA V2 max: 79.2 cm/sec TR max johann: 298.2 cm/sec LV V1 max P.7 mmHg PA V2 mean: 56.8 cm/sec TR max P.6 mmHg LV V1 mean P.8 mmHg LV V1 mean: 80.2 cm/sec LV V1 VTI: 18.5 cm ECHO/Echo Complete W/ Contrast Interpretation Summary The estimated ejection fraction is 60 %. Mildly dilated right ventricle. Mild to moderate global right ventricular systolic dysfunction. Right ventricular systolic pressure estimated to be 40 mmHg. The study was technically difficult. Contrast injection was performed. Ordering Physician: Jin Murray Referring Physician: Rafael Hunter Performed By: Trish Delgado RDCS, RVT
[2023-06-06] MEDS: HEPARIN/D5w 25,000 UNITS 25,000 UNITS/250 ML IV.SOLN. 19 UNITS CONT INF (22:30)
--- NOTE | 2023-06-06 23:26 | VDLE_ITS ---
Reason For Study: HX Pulmonary Embolism RIGHT LEFT GSV is normal. GSV is normal. CFV is compressible, spontaneous, phasic, CFV is compressible, spontaneous, phasic, competent and demonstrates normal competent, and demonstrates normal augmentation. augmentation. FV is compressible, spontaneous, phasic, FV is compressible, spontaneous, phasic, competent and demonstrates normal competent and demonstrates normal augmentation. augmentation. POP V is compressible, spontaneous, phasic, POP V is compressible, spontaneous, phasic, competent and demonstrates normal competent and demonstrates normal augmentation. augmentation. T/P Trunk is compressible. T/P Trunk is compressible. Acute deep vein thrombosis is noted in the PTV is compressible. PTV. It is dilated and NONCOMPRESSIBLE. LT PerV is compressible. RT PerV is compressible. SSV Prox calf - Dist calf is dilated and NONCOMPRESSIBLE with intraluminal echoes. Procedure This is a venous duplex using B-mode, color flow and spectral Doppler. Exam performed portable in patient room. The exam was diagnostic. A preliminary report was called and/or faxed to PCU wellness consultant. VL/Venous Duplex US - [place] Extrem Interpretation Summary Acute deep vein thrombosis is noted in the right posterior tibial vein. Acute superficial vein thrombosis is noted in the right small saphenous vein. Deep veins of the left lower extremity are patent and compressible segmentally. There is no evidence of left lower extremity deep vein thrombosis. The bilateral great saphenous vei ns appear patent and compressible segmentally. Ordering Physician: Jin Murray Referring Physician: MD Elsa Rafael Performed By: Tim Ware, RVT
[2023-06-07] MEDS: 0.9% Normal Saline (1000mL) 1,000 ML 125 ML IV ×2 (00:19→08:01)
[2023-06-07] MEDS: hydroCHLOROthiazide 12.5mg 12.5 MG PO (00:30)
[2023-06-07] MEDS: Lisinopril 10 MG Tablet PO (00:30)
[2023-06-07 04:00] VITALS: BP 101/54; PULSE 87; RESP 18; TEMP 36.7; O2SAT 88; O2SAT 94
[2023-06-07 04:21] LABS: Absolute Neutrophil Count 5.2 X10^3/uL (2.0-7.7); Basophil# 0.07 X10^3/uL; Basophil% 0.9 % (0-1); Eosinophil# 0.18 X10^3/uL; Eosinophils% 2.3 % (0-5); Hematocrit 44.2 % (40-54); Lymphocyte % 23.8 % (19-41); Mean Corp Hgb Conc 33.9 g/dL (32-36); Mean Corpuscular Hgb 29.6 pg (27.0-32.0); Mean Corpuscular Volume 87.4 fL (80-94); Monocyte# 0.57 X10^3/uL; Monocyte% 7.1 % (0-10); NRBC Flagged by Analyzer 0 % (0-5); Neutrophil # 5.19 X10^3/uL (2.7-7.7); Neutrophil % 64.9 % (47-70); Platelet Count 124 K/mm3 (150-450); RBC Distribution Width CV 12.8 % (11.6-14.6); RBC Distribution Width SD 40.6 fl (35.1-43.9); Red Blood Count 5.06 M/mm3 (4.6-6.2)
[2023-06-07 04:44] LABS: International Normalized Ratio 1.2; Prothrombin Time (Protime)PT. 15.4 SECONDS (11.7-14.9)
[2023-06-07 04:45] LABS: Partial Thromboplast Time > 200.0 Seconds (24.1-36.2)
[2023-06-07 04:51] LABS: ALB/GLOB Ratio 1.1 RATIO (0.9-2.4); AST(SGOT) 40 U/L (15-37); Alanine Aminotransfer ALT/SGPT 83 U/L (16-61); Albumin, Serum 3.7 g/dL (3.2-5.0); Alkaline Phosphatase 58 U/L (45-117); Anion Gap 7 (5-15); BUN 13 mg/dL (7-18); BUN/Creat Ratio 13.6 RATIO (10-20); Calcium,Total 8.6 mg/dL (8.5-10.1); Chloride 106 mmol/L (98-107); Creatinine, Serum 0.95 mg/dL (0.70-1.30); EST Glomerular Filtration Rate 89 mL/min (>60); Est Glom Filt Rate - Afr Amer 108 mL/min (>60); Estimated Creatinine Clearance 104.37 ml/min; Globulin 3.5 g/dL (2.2-4.2); Glucose 100 mg/dL (74-106); Potassium 3.7 mmol/L (3.5-5.1); Protein, Total 7.2 g/dL (6.4-8.2); Sodium Level 137 mmol/L (136-145); Thyroid Stim Hormone (TSH) 1.48 uIU/mL (0.358-3.74)
[2023-06-07 06:00] VITALS: BMI 44.9
[2023-06-07 06:12] LABS: Troponin-I HS 125 pg/mL (3.0-78.0)
[2023-06-07 07:25] LABS: Troponin-I HS 74 pg/mL (3.0-78.0)
[2023-06-07 07:33] VITALS: O2SAT 97
--- NOTE | 2023-06-07 08:05 | PN.HOSP_ITS ---
Reason for Visit Reason for Visit: Diagnoses Lupus anticoagulant syndrome (06/07/23) Thrombocytopenia, unspecified (06/07/23) Morbid (severe) obesity due to excess calories (06/07/23) Multiple subsegmental pulmonary emboli without acute cor pulmonale (06/07/23) Other pulmonary embolism without acute cor pulmonale (06/07/23) Objective Data Objective Data Vital Signs: Vital Signs Temp Pulse Resp BP Pulse Ox O2 Del Method O2 Flow Rate 98.0 F 87 18 101/54 L 97 Room Air 2 06/07/23 04:00 06/07/23 04:00 06/07/23 04:00 06/07/23 04:00 06/07/23 07:33 06/07/23 07:33 06/07/23 04:30 Oxygen Flow Rate (L/min) 2 Oxygen Delivery Method Room Air Weight: 331 lb 2.149 oz Body Mass Index (BMI) 44.9 Intake & Output: Intake and Output for Last 24 Hours 06/05/23 06/06/23 06/07/23 23:59 23:59 23:59 Intake Total 1621.25 / 1621.25 Balance 1621.25 / 1621.25 Lab / Micro Data 06/07/23 04:13 06/07/23 04:13 Labs: Laboratory Results - last 24 hr 06/06/23 19:18: WBC 9.5, RBC 5.22, Hgb 15.6, Hct 44.9, MCV 86.0, MCH 29.9, MCHC 34.7, RDW Std Deviation 39.3, RDW Coeff of Marix[place] 12.6, Plt Count 133 L, MPV 9.9, Immature Gran % (Auto) 0.800, Neut % (Auto) 73.8 H, Lymph % (Auto) 16.1 L, [place] % (Auto) 7.0, Eos % (Auto) 1.6, Baso % (Auto) 0.7, Absolute Neuts (auto) 7.0, A bsolute Lymphs (auto) 1.53, Nucleated RBC % 0, PT 14.2, INR 1.1, APTT 57.0 H, Sodium 135 L, Potassium 3.8, Chloride 107, Carbon Dioxide 22.0, Anion Gap 6, BUN 17, Creatinine 0.91, Estim Creat Clear Calc 108.96, Est GFR (MDRD) Af Amer 115, Est GFR (MDRD) Non-Af 95, BUN/Creatinine Ratio 18.7, Glucose 106, Calcium 9.3, Troponin I High Sens 85 H 06/07/23 04:13: WBC 8.0, RBC 5.06, Hgb 15.0, Hct 44.2, MCV 87.4, MCH 29.6, MCHC 33.9, RDW Std Deviation 40.6, RDW Coeff of [place]ix[place] 12.8, Plt Count 124 L, MPV 10.0, Immature Gran % (Auto) 1.000 H, Neut % (Auto) 64.9, Lymph % (Auto) 23.8, [place] % (Auto) 7.1, Eos % (Auto) 2.3, Baso % (Auto) 0.9, Absolute Neuts (auto) 5.2, Ab solute Lymphs (auto) 1.90, Nucleated RBC % 0, PT 15.4 H, INR 1.2, APTT > 200.0 H*, Sodium 137, Potassium 3.7, Chloride 106, Carbon Dioxide 24.0, Anion Gap 7, BUN 13, Creatinine 0.95, Estim Creat Clear Calc 104.37, Est GFR (MDRD) Af Amer 108, Est GFR (MDRD) Non-Af 89, BUN/Creatinine Ratio 13.6, Glucose 100, Calcium 8.6, Total Bilirubin 1.00, AST 40 H, ALT 83 H, Alkaline Phosphatase 58, Troponin I High Sens 125 H*, Total Protein 7.2, Albumin 3.7, Globulin 3.5, Albumin/Globulin Ratio 1.1, TSH 1.48 06/07/23 06:53: Troponin I High Sens 74 Radiography Diagnostic Testing: Radiology Impression Chest CTA 06/06/23 19:15 IMPRESSION: Large bilateral distal main pulmonary artery emboli extending into all lobar branches and multiple segmental branches without evidence of right heart strain. No evidence of acute airspace disease. Hepatic steatosis. Electronically Signed: Anand Whitehead MD at 20:48 EST , ADDENDUM: 06/06/23 2105 IMPRESSION: Large bilateral distal main pulmonary artery emboli extending into all lobar branches and multiple segmental branches without evidence of right heart strain. No evidence of acute airspace disease. Hepatic steatosis. N.B. : The above Results were Read Back by Anand Whitehead MD to Robert Conley MD, and understanding confirmed on 06/06/2023 20:58:22 (ET). Electronically Signed: Anand Whitehead MD at 20:48 EST , Rhythm Strip Rhythm Strip: Sinus Tach Rate: 102 Ectopy: None Assessment & Plan Assessment/Plan (1) Pulmonary embolism: QUALIFIERS: Pulmonary embolism type: multiple subsegmental (without acute cor pulmonale) Qualified Code(s): I26.94 - Multiple subsegmental pulmonary emboli without acute cor pulmonale (2) Lupus anticoagulant disorder: (3) Thrombocytopenia: (4) Morbid obesity: PLAN: Plan 48-year-old gentleman with history of prior PE and DVT secondary to lupus anticoagulant, has IVC filter came to ED with shortness of breath, hypoxia, pulse ox low 80% on room air at home and sinus tachycardia. No hemoptysis. Patient was off of Coumadin for [address] shows large bilateral distal main pulmonary artery emboli extending into all lobar branches and multiple segmental branches without evidence of right heart strain. No evidence of acute airspace disease. 1. Pulmonary embolism; recurrent in the setting of known lupus anticoagulant disorder with failed trial off Coumadin -patient is admitted to monitored bed. Continue IV heparin begun in the ER and adjust per protocol. Check echocardiogram to evaluate for evidence of potential right heart strain. Check lower extremity Dopplers to evaluate for residual clot burden in this patient with previous IVC filter. Give Tylenol as needed for pain or fever. It is important to note that his IVC filter has been removed a long time ago. Finally, we will consult Dr. Bragg of the hematology service to see this patient on rounds in the a.m. for further recommendations with help appreciated in advance. Twelve-lead EKG shows sinus tachycardia at 102 bpm. 2. Non-STEMI type II with elevated troponin of 85 pg/mL present on admission likely due to acute cardiac strain arising from #1 - Patient has no symptoms of acute coronary syndrome at this time. We will serial as troponin to be sure. 3. Chronic moderate thrombocytopenia 133 present on admission with patient intolerant to NOACs in the past - Check CBC daily to ensure continued stability of platelet count while on heparin. Hematology will be asked to optimize his treatment regimen to prevent recurrent VTE. 3. Morbid obesity; with BMI of 45.6 this admission - Weight loss will be recommended. Check TSH this admission. 4. Essential hypertension - Resume home medications as previous plus give as needed IV hydralazine for systolic blood pressure greater than 160 mmHg. 5. DVT prophylaxis - Patient already on IV heparin for #1. Total time: Approximately 55 minutes.
--- NOTE | 2023-06-07 09:38 | DCINST_ITS ---
Discharge Instructions Diet Discharge Diet: Low fat / Low cholesterol and 2000 mg Sodium Diet Activity Discharge Activity: Return to Normal Activity Weight Bearing Status: Weight bearing as tolerated Dressing / Incision Call your doctor if you observe: Fever of 101 or Higher, Coldness, Increased Pain, Numbness or Tingling, Change in Color, Inability to urinate, Inability to have a bowel movement, Shortness of breath, Dizziness, Fainting spells, Swelling in the ankles, Chest pain, Prolonged hiccupping, Increased palpitations (irregular heartbeat) and Calf discomfort Follow Up Care When: IN 2 WEEKS Test Results: Test results from this visit will be discussed in further detail at your follow- up appointment, if applicable. Discharge Plan Admission Admit Date/Time: 06/06/23 22:18 Primary Reason for Your Visit: Acute main pulmonary artery to segmental level bilateral PE Attending Provider: Marcos Wilburn Primary Care Provider: Rafael Hunter Consulting Providers: Mikhail Bragg; Jin Murray Discharge Orders/Prescriptions Prescriptions: New warfarin [Jantoven] 5 mg Tablet 5 mg PO 1700 30 Days Qty: 30 1RF metoprolol succinate 25 mg tablet extended release 24 hr 12.5 mg PO DAILY Qty: 30 0RF enoxaparin 150 mg/mL syringe 150 mg subcut Q12@0600,1800 7 Days Qty: 14 0RF Continued lisinopril-hydrochlorothiazide 1 EACH tablet 10 - 12.5 mg PO DAILY Qty: 90 3RF Discontinued lisinopril-hydrochlorothiazide 10-12.5 mg tablet 1 tab PO QHS warfarin 2.5 mg tablet 2.5 mg .ROUTE .COMPLEX Qty: 30 1RF Hold Instructions: md stopped 2 months ago Rx Instructions: 2.5 mg; warfarin 5 mg tablet See Rx Instructions .ROUTE .COMPLEX Qty: 60 0RF Hold Instructions: md stopped 2 months ago Dose Instruction: take 2 tablets by mouth once daily Rx Instructions: take 2 tablets by mouth once daily Referrals / Follow Up: Drew Vivar DO [Med Staff - Active Staff] - Within 1 Month (FOR Recurrent PE AND RV dilatation?) Mikhail Bragg MD [Med Staff - Active Staff] - Within 1 Week Rafael Hunter MD [Primary Care Provider] - Care Physician,No Primary [Non-Staff] - Disposition Disposition (needs filled in before D/C Order can be placed): Home, Self Care
[2023-06-07 09:45] VITALS: BP 129/89; PULSE 97; RESP 16; TEMP 36.1; O2SAT 96
--- NOTE | 2023-06-07 09:52 | CON.PCM.ON_ITS ---
Assessment & Plan Assessment/Plan (1) Antiphospholipid antibody syndrome: Status: Chronic Code(s): D68.61 - Antiphospholipid syndrome Plan: The patient fulfills the diagnosis criteria for antiphospholipid antibodies syndrome (1 or more venous thromboembolic episodes, persistently elevated IgG anticardiolipin antibody [address] Although past episodes were clearly provoked this presenting episode of June 2023 had no obvious provoking event. Recommendation: 1. Long-term systemic anticoagulation, preferred warfarin (longer experience and APS) Target INR 2-3. 2. Initiate warfarin treatment with Lovenox cover for the first week at 1 Mg per kilogram body weight subcutaneously every 12 hours. 3. Follow-up with Dr. Bragg as outpatient in 1 week. Case discussed with hospitalist , Dr. Wilburn, and Dr Bragg. Amber Do MD Sociology Adjunct Instructor, [employer] [facility] Divisions of Medical Oncology & Hematology Department of Internal Medicine [place] [id number] This note was generated using a voice recognition system software. Although it was reviewed by the author prior to finalization, it may still contain incorrect words, spelling, and punctuation that were not noted when reviewing prior to saving. If a clinically significant typo or inaccurately typed phrase is noted, please notify the author. (2) Pulmonary embolism: Status: Chronic Code(s): I26.99 - Other pulmonary embolism without acute cor pulmonale Qualifiers: Pulmonary embolism type: multiple subsegmental (without acute cor pulmonale) Qualified Code(s): I26.94 - Multiple subsegmental pulmonary emboli without acute cor pulmonale (3) Thrombocytopenia: Status: Acute Code(s): D69.6 - Thrombocytopenia, unspecified HPI Consult Data Date of Service:: 06/07/23 PCP / Referring Provider: Dr. Rafael Hunter MD Attending: Dr. Marcos Wilburn MD Chief Complaint Chief Complaint: Dyspnea, recurrent pulmonary embolism History of Present Illness History of Present Illness: 48-year-old gentleman admitted with dyspnea and acute pulmonary embolus. He has a medical history notable for recurrent venous thromboembolic disease and low to moderate positive anticardiolipin antibody, IgG. Prior venous thromboembolic events were clearly provoked and patient was intermittently treated with systemic anticoagulation and immune suppressive therapy with no bleeding complications. He has been off systemic anticoagulation since January 2023. However this episode of June 2023 has not been preceded by any obvious provoking factors. Advanced Directives Power of Steel Handler: No Living Will: No [facility] Medical History (Updated 06/07/23 @ 10:[address] Amber Do MD) Antiphospholipid antibody syndrome Dyspnea on exertion Encounter for education Lupus anticoagulant disorder Obese Presence of IVC filter Pulmonary emboli Saddle embolus Sleep apnea Thrombocytopenia Home Medications lisinopril 20 mg-hydrochlorothiazide 25 mg tablet 10 - 12.5 mg (0.2222 - 0.2778 x 20-25 mg) PO DAILY #90 tabs 09/04/18 [Rx Last Taken Unknown] lisinopril 10 mg-hydrochlorothiazide 12.5 mg tablet 1 tab PO QHS high blood pressure 06/06/23 [History Last Taken 06/05/23] warfarin 2.5 mg tablet 2.5 mg .Route .COMPLEX #30 tabs 06/06/23 [Rx Last Taken Unknown] warfarin 5 mg tablet See Rx Instructions .Route .COMPLEX #60 tabs 06/06/23 [Rx Last Taken Unknown] Allergy/AdvReac Type Severity Reaction Status Date / Time Penicillins Allergy Rash Verified 06/06/23 19:03 Surgical History H/O right knee surgery Social History household members: spouse housing: house number of children: 0 service: No current occupational status: unemployed pets and animals: Yes (3 cats) Smoking Status: Never smoker Electronic Cigarette Use: not used second hand exposure: No alcohol intake: current alcohol intake frequency: a few times a week Alcohol type: beer substance use type: does not use ROS Constitutional Constitutional: Denies fever(s) ENT HEENT: Reports other Details: No nose or gum bleed Cardiovascular Cardiovascular: Reports dyspnea, dyspnea on exertion and tachypnea; Denies chest pain or edema Respiratory/Chest Respiratory/Chest: Reports dyspnea, dyspnea on exertion and other Details: No hemoptysis Gastrointestinal Gastrointestinal: Denies hematochezia, hemorrhoids or melena Genitourinary Genitourinary: Denies hematuria Integumentary Integumentary: Denies unusual bruising Neurologic Neurologic: Denies abnormal speech, focal weakness or numbness Hematologic/Lymphatic Hematologic/Lymphatic: Denies easy bleeding or easy bruising Physical Exam Narrative ECOG 0 Const alert, oriented x3 and no apparent distress General Appearance: cooperative and comfortable Orientation / Consciousness: oriented to person, oriented to place and oriented to time Nutritional Appearance: obese HEENT normocephalic Eyes no scleral icterus Neck no JVD Resp clear to auscultation bilaterally Cardio regular rate and regular rhythm GI soft to palpation and non-tender Extremity no clubbing, cyanosis or edema Skin no rashes or lesions noted Neuro CN's II-XII intact bilaterally, moves all extremities and no focal motor deficits Psych mental status grossly normal Vital Signs Temperature 97.0 F L 06/07/23 09:45 Temperature Source Temporal 06/07/23 09:45 Pulse Rate 97 06/07/23 09:45 Respiratory Rate 16 06/07/23 09:45 Respiratory Effort Normal, Non-Labored 06/07/23 04:30 Respiratory Depth Normal 06/07/23 04:30 Respiratory Pattern Normal 06/07/23 04:30 Blood Pressure 129/89 H 06/07/23 09:45 Blood Pressure Mean 102 06/07/23 09:45 Blood Pressure Source Monitor 06/07/23 09:45 Blood Pressure Position Semi-Fowlers 06/07/23 09:45 Blood Pressure Location Right Arm 06/07/23 09:45 Pulse Ox 96 06/07/23 09:45 Oxygen Delivery Method Room Air 06/07/23 09:45 Oxygen Flow Rate (L/min) 2 06/07/23 04:30 Laboratory Results - last 24 hr 06/06/23 19:18: WBC 9.5, RBC 5.22, Hgb 15.6, Hct 44.9, MCV 86.0, MCH 29.9, MCHC 34.7, RDW Std Deviation 39.3, RDW Coeff of Marixa 12.6, Plt Count 133 L, MPV 9.9, Immature Gran % (Auto) 0.800, Neut % (Auto) 73.8 H, Lymph % (Auto) 16.1 L, [place] % (Auto) 7.0, Eos % (Auto) 1.6, Baso % (Auto) 0.7, Absolute Neuts (auto) 7.0, Absolute Lymphs (auto) 1.53, Nucleated RBC % 0, PT 14.2, INR 1.1, APTT 57.0 H, Sodium 135 L, Potassium 3.8, Chloride 107, Carbon Dioxide 22.0, Anion Gap 6, BUN 17, Creatinine 0.91, Estim Creat Clear Calc 108.96, Est GFR (MDRD) Af Amer 115, Est GFR (MDRD) Non-Af 95, BUN/Creatinine Ratio 18.7, Glucose 106, Calcium 9.3, Troponin I High Sens 85 H 06/07/23 04:13: WBC 8.0, RBC 5.06, Hgb 15.0, Hct 44.2, MCV 87.4, MCH 29.6, MCHC 33.9, RDW Std Deviation 40.6, RDW Coeff of Marixa 12.8, Plt Count 124 L, MPV 10.0, Immature Gran % (Auto) 1.000 H, Neut % (Auto) 64.9, Lymph % (Auto) 23.8, [place] % (Auto) 7.1, Eos % (Auto) 2.3, Baso % (Auto) 0.9, Absolute Neuts (auto) 5.2, Absolute Lymphs (auto) 1.90, Nucleated RBC % 0, PT 15.4 H, INR 1.2, APTT > 200.0 H*, Sodium 137, Potassium 3.7, Chloride 106, Carbon Dioxide 24.0, Anion Gap 7, BUN 13, Creatinine 0.95, Estim Creat Clear Calc 104.37, Est GFR (MDRD) Af Amer 108, Est GFR (MDRD) Non-Af 89, BUN/Creatinine Ratio 13.6, Glucose 100, Calcium 8.6, Total Bilirubin 1.00, AST 40 H, ALT 83 H, Alkaline Phosphatase 58, Troponin I High Sens 125 H*, Total Protein 7.2, Albumin 3.7, Globulin 3.5, Albumin/Globulin Ratio 1.1, TSH 1.48 06/07/23 06:53: Troponin I High Sens 74 Laboratory Tests 11/09/21 03/02/22 03/30/22 10:55 09:25 09:50 Anti-Cardiolipin IgG Ab 23 H 45 H 42 H 03/26/23 09:04 Anti-Cardiolipin IgG Ab 52 H Laboratory Tests 11/09/21 03/02/22 03/30/22 10:55 09:25 09:50 Anti-Cardiolipin IgG Ab 23 H 45 H 42 H 03/26/23 09:04 Anti-Cardiolipin IgG Ab 52 H Diagnostic Data Chest CTA 06/06/23 19:15 IMPRESSION: Large bilateral distal main pulmonary artery emboli extending into all lobar branches and multiple segmental branches without evidence of right heart strain. No evidence of acute airspace disease. Hepatic steatosis. Electronically Signed: Anand Whitehead MD at 20:48 EST , ADDENDUM: 06/06/232104 IMPRESSION: Large bilateral distal main pulmonary artery emboli extending into all lobar branches and multiple segmental branches without evidence of right heart strain. No evidence of acute airspace disease. Hepatic steatosis. N.B. : The above Results were Read Back by Anand Whitehead MD to Robert Conley MD, and understanding confirmed on 06/06/2023 20:58:22 (ET). Electronically Signed: Anand Whitehead MD at 20:48 EST ,
[2023-06-07] MEDS: Enoxaparin 150 MG/ML Syringe SC (11:04)
--- NOTE | 2023-06-07 11:30 | CASEMGMT ---
RN CM Face to Face with patient for initial transition planning/care coordination assessment. RN CM introduced self and role at [facility]. Patient lying in bed, alert and oriented, at bedside. Patient willing to participate in assessment and is able to answer all questions appropriately. Care providers, pharmacy, and demographics verified. Patient wishes to discharge home, denies need for home health at this time. Patient states he has no further needs or concerns at this time. CM to follow for discharge planning needs that may arise. PCP: Elsa Specialists: Yemi, store receiving specialist; Preferred Pharmacy: [facility] Insurance: [place] Prescription Benefit: yes Living Will/HPOA: none LNOK: Living Arrangements: Patient lives with in a 2 story home. Patient is independent and able to ambulate stairs. Transportation: self, friend, father DME/HHC: Patient has shower chair, BSC, raised toilet, cane, walker, grab bars, cpap, and pulse ox at home. Patient has had [facility] in the past. Disposition Plan: Patient to discharge home with family support and follow-up plans in place. Berenice LOPEZ, RN, CM
--- NOTE | 2023-06-07 15:03 | PCM.DC.SUM ---
Providers Date of Admission: 06/06/23 Date of Discharge: 06/07/23 Primary Care Physician: Dr. Rafael Hunter MD Consultations 06/06/23 23:26 Consult: Oncology/Hematology Routine Consulting Provider: Mikhail Bragg Reason for Consult: Recurrent PE in the setting of lupus anticoagulant syndrome EMERGENT Consult: No MD Notified: Yes Date Notified: 06/07/23 Time Notified: 06:55 Method of Notification: Text Reason For Visit: RECURRENT PULMONARY EMBOLI IN THE SETTING OF LUPUS Diagnosis Discharge Diagnosis (1) Antiphospholipid antibody syndrome: Status: Chronic Code(s): D68.61 - Antiphospholipid syndrome (2) Pulmonary embolism: Status: Chronic Code(s): I26.99 - Other pulmonary embolism without acute cor pulmonale Qualifiers: Pulmonary embolism type: multiple subsegmental (without acute cor pulmonale) Qualified Code(s): I26.94 - Multiple subsegmental pulmonary emboli without acute cor pulmonale (3) Thrombocytopenia: Status: Acute Code(s): D69.6 - Thrombocytopenia, unspecified Plan 48-year-old gentleman with history of prior PE and DVT secondary to lupus anticoagulant, has IVC filter came to ED with shortness of breath, hypoxia, pulse ox low 80% on room air at home and sinus tachycardia. No hemoptysis. Patient was off of Coumadin for [address] shows large bilateral distal main pulmonary artery emboli extending into all lobar branches and multiple segmental branches without evidence of right heart strain. No evidence of acute airspace disease. 1. Acute on chronic pulmonary embolism; recurrent in the setting of known lupus anticoagulant disorder, antiphospholipid syndrome with right ventricular dilatation/acute cor pulmonale: The patient was admitted on monitored bed, PCU. The patient was started on IV heparin drip in ED. Lower extremity venous duplex shows evidence of right posterior tibial vein DVT and superficial small saphenous vein. In the past patient had IVC filter which was removed. Earlier DVT/PE incidence was thought to be provoked therefore warfarin was discontinued. Patient follows Dr. Bragg. Patient had first episode of DVT and PE in 2018 which progressed while taking DOAC therefore changed to warfarin. Twelve-lead EKG shows sinus tachycardia 102 bpm. Troponin slightly elevated 85, 125 and then 74. D-dimer elevated. BNP normal. Mild troponin elevation secondary to right heart strain, nonischemic in nature, due to acute myocardial injury from increased cardiac demand. 2D echo was done and reported mildly dilated RV with mild to moderate global RV systolic dysfunction. RVSP 40 mmHg with trivial TR. LV systolic function normal with EF 60%. Twelve-lead EKG shows sinus tachycardia at 102 bpm. Low Pressure Boiler Tender was consulted and patient fulfills antiphospholipid syndrome criteria (1 or more venous thromboembolic episodes, persistently elevated IgG anticardiolipin antibody over [address] For any lifelong systemic anticoagulation preferred warfarin with target INR between 2-3. IV heparin drip changed to Lovenox 1 mg/kg body weight every 12 hours for 1 week to overlap with warfarin. Patient is started on warfarin 5 mg daily. It was also discussed with Dr. Bragg. The patient to follow with Dr. Bonilla 1 week. dvised CBC and INR in 3 days and follow with PCP/Dr. Bragg.. 2. Chronic moderate thrombocytopenia 133 present on admission:- Check CBC daily to ensure continued stability of platelet count while on heparin. Hematology will be asked to optimize his treatment regimen to prevent recurrent VTE. Repeat platelet count is 124,000. A 3. Morbid obesity; with BMI of 45.6 this admission - Weight loss recommended. TSH normal. 4. Essential hypertension -patient blood pressure low 100s to 120s therefore lisinopril?HCTZ 10/12.5 mg daily ordered. Lisinopril HCTZ at night on home medication list discontinued. Discharge medication reconciliation done. Discharge follow-up instructions completed. Discharge process discussed with the patient and all questions were answered to patient's satisfaction. Follow with PCP in 1 to 2 weeks Total time spent, exact 35 minutes on discharge meds reconciliation, examination, coordination of care with nurses and ancillary staff, review of imaging and blood test and discussion with the patient on follow-up instructions. Clinical Impression(s) from Imaging Studies Chest CTA 06/06/23 19:15 IMPRESSION: Large bilateral distal main pulmonary artery emboli extending into all lobar branches and multiple segmental branches without evidence of right heart strain. No evidence of acute airspace disease. Hepatic steatosis. Electronically Signed: Anand Whitehead MD at 20:48 EST , ADDENDUM: 06/06/232104 IMPRESSION: Large bilateral distal main pulmonary artery emboli extending into all lobar branches and multiple segmental branches without evidence of right heart strain. No evidence of acute airspace disease. Hepatic steatosis. N.B. : The above Results were Read Back by Anand Whitehead MD to Robert Conley MD, and understanding confirmed on 06/06/2023 20:58:22 (ET). Electronically Signed: Anand Whitehead MD at 20:48 EST , Venous Doppler Study 06/06/23 23:26 Interpretation Summary Acute deep vein thrombosis is noted in the right posterior tibial vein. Acute superficial vein thrombosis is noted in the right small saphenous vein. Deep veins of the left lower extremity are patent and compressible segmentally. There is no evidence of left lower extremity deep vein thrombosis. The bilateral great saphenous veins appear patent and compressible segmentally. Total time: Approximately 55 minutes. Medications at Discharge Home Medications lisinopril 20 mg-hydrochlorothiazide 25 mg tablet 10 - 12.5 mg (0.2222 - 0.2778 x 20-25 mg) PO DAILY #90 tabs 09/04/18 enoxaparin 150 mg/mL subcutaneous syringe 150 mg subcut Q12@0600,1800 7 days #14 mL 06/07/23 metoprolol succinate 25 mg tablet,extended release 24 hr 12.5 mg (1/2 x 25 mg) PO DAILY #30 tabs 06/07/23 warfarin 5 mg tablet (Jantoven) 5 mg PO 1700 30 days #30 tabs 06/07/23 Physical Exam Narrative Seen and examined. Patient had shortness of breath and chest pain that has resolved. He had major PE and DVT episode in 2018. Physical exam General: Alert, Oriented x3, Cooperative, morbid obesity BMI 45.6 kg/m?. HEENT: Atraumatic, PERRLA, EOMI, Normocephalic Oral: Oral mucosa moist. No Gingival or Mucosal Lesions/ Ulcerations Neck: Supple, No JVD, Negative Carotid Bruits Lungs: Air entry diminished in bilateral lung bases. No crepitation/rhonchi Cardiovascular: Regular rate, Regular Rhythm, Normal S1, Normal S2, No murmurs Abdomen: Bowel Sounds Present, Soft, Non Tender, Non-Distended : No renal angle tenderness. No suprapubic tenderness. Extremities: No edema, Capillary Refill Less than 3 Seconds Skin: No rashes, No breakdown Musculoskeletal: No Tenderness to Palpation of Joints or Extremities Neurological: Cranial nerves II-XII grossly intact, DTR 2+/4. No acute focal neurological deficit. Psych/Mental Status: Normal Affect, Appropriate. Weight / BMI Weight Weight: 331 lb 2.149 oz Body Mass Index (BMI) 44.9 ABG / Lab / Microbiology Data 06/07/23 04:13 06/07/23 04:13 Laboratory: Laboratory Results - last 24 hr 06/06/23 19:18: WBC 9.5, RBC 5.22, Hgb 15.6, Hct 44.9, MCV 86.0, MCH 29.9, MCHC 34.7, RDW Std Deviation 39.3, RDW Coeff of Marixa 12.6, Plt Count 133 L, MPV 9.9, Immature Gran % (Auto) 0.800, Neut % (Auto) 73.8 H, Lymph % (Auto) 16.1 L, [place] % (Auto) 7.0, Eos % (Auto) 1.6, Baso % (Auto) 0.7, Absolute Neuts (auto) 7.0, Absolute Lymphs (auto) 1.53, Nucleated RBC % 0, PT 14.2, INR 1.1, APTT 57.0 H, Sodium 135 L, Potassium 3.8, Chloride 107, Carbon Dioxide 22.0, Anion Gap 6, BUN 17, Creatinine 0.91, Estim Creat Clear Calc 108.96, Est GFR (MDRD) Af Amer 115, Est GFR (MDRD) Non-Af 95, BUN/Creatinine Ratio 18.7, Glucose 106, Calcium 9.3, Troponin I High Sens 85 H 06/07/23 04:13: WBC 8.0, RBC 5.06, Hgb 15.0, Hct 44.2, MCV 87.4, MCH 29.6, MCHC 33.9, RDW Std Deviation 40.6, RDW Coeff of Marixa 12.8, Plt Count 124 L, MPV 10.0, Immature Gran % (Auto) 1.000 H, Neut % (Auto) 64.9, Lymph % (Auto) 23.8, [place] % (Auto) 7.1, Eos % (Auto) 2.3, Baso % (Auto) 0.9, Absolute Neuts (auto) 5.2, Absolute Lymphs (auto) 1.90, Nucleated RBC % 0, PT 15.4 H, INR 1.2, APTT > 200.0 H*, D-Dimer Quant (PE/DVT) 2.70 H*, Sodium 137, Potassium 3.7, Chloride 106, Carbon Dioxide 24.0, Anion Gap 7, BUN 13, Creatinine 0.95, Estim Creat Clear Calc 104.37, Est GFR (MDRD) Af Amer 108, Est GFR (MDRD) Non-Af 89, BUN/Creatinine Ratio 13.6, Glucose 100, Calcium 8.6, Total Bilirubin 1.00, AST 40 H, ALT 83 H, Alkaline Phosphatase 58, Troponin I High Sens 125 H*, Total Protein 7.2, Albumin 3.7, Globulin 3.5, Albumin/Globulin Ratio 1.1, TSH 1.48 06/07/23 06:53: Troponin I High Sens 74 Radiography Diagnostic Testing: Radiology Impression Chest CTA 06/06/23 19:15 IMPRESSION: Large bilateral distal main pulmonary artery emboli extending into all lobar branches and multiple segmental branches without evidence of right heart strain. No evidence of acute airspace disease. Hepatic steatosis. Electronically Signed: Anand Whitehead MD at 20:48 EST Reading Location ID and State: [facility] / [place] Tel , Service support , ADDENDUM: 06/06/23 [id number] IMPRESSION: Large bilateral distal main pulmonary artery emboli extending into all lobar branches and multiple segmental branches without evidence of right heart strain. No evidence of acute airspace disease. Hepatic steatosis. N.B. : The above Results were Read Back by Anand Whitehead MD to Robert Conley MD, and understanding confirmed on 06/06/2023 20:58:22 (ET). Electronically Signed: Anand Whitehead MD at 20:48 EST Reading Location ID and State: [facility] / [place] Tel , Service support , Venous Doppler Study 06/06/23 23:26 Interpretation Summary Acute deep vein thrombosis is noted in the right posterior tibial vein. Acute superficial vein thrombosis is noted in the right small saphenous vein. Deep veins of the left lower extremity are patent and compressible segmentally. There is no evidence of left lower extremity deep vein thrombosis. The bilateral great saphenous veins appear patent and compressible segmentally. Ordering Physician: Jin Murray Referring Physician: MD Rafael Hunter Performed By: Tim Ware RVT D/C Instructions Discharge Diet: Low fat / Low cholesterol and 2000 mg Sodium Diet Weight Bearing Status: Weight bearing as tolerated Call your doctor if you observe: Fever of 101 or Higher, Coldness, Increased Pain, Numbness or Tingling, Change in Color, Inability to urinate, Inability to have a bowel movement, Shortness of breath, Dizziness, Fainting spells, Swelling in the ankles, Chest pain, Prolonged hiccupping, Increased palpitations (irregular heartbeat) and Calf discomfort When: IN 2 WEEKS Meaningful Use Info Meaningful Use Diagnoses (Choose all that apply): VTE VTE Anticoag overlap given w/in hospital stay or rx'd at sc?: Yes Pt receive overlap for 5 days?: Yes Discharge Plan Admission Admit Date/Time: 06/06/23 22:18 Primary Reason for Your Visit: Acute main pulmonary artery to segmental level bilateral PE Attending Provider: Marcos Wilburn Primary Care Provider: Rafael Hunter Consulting Providers: Mikhail Bragg; Jin Murray Discharge Orders/Prescriptions Prescriptions: New warfarin [Jantoven] 5 mg Tablet 5 mg PO 1700 30 Days Qty: 30 1RF metoprolol succinate 25 mg tablet extended release 24 hr 12.5 mg PO DAILY Qty: 30 0RF enoxaparin 150 mg/mL syringe 150 mg subcut Q12@0600,1800 7 Days Qty: 14 0RF Continued lisinopril-hydrochlorothiazide 1 EACH tablet 10 - 12.5 mg PO DAILY Qty: 90 3RF Discontinued lisinopril-hydrochlorothiazide 10-12.5 mg tablet 1 tab PO QHS warfarin 2.5 mg tablet 2.5 mg .ROUTE .COMPLEX Qty: 30 1RF Hold Instructions: md stopped 2 months ago Rx Instructions: 2.5 mg; warfarin 5 mg tablet See Rx Instructions .ROUTE .COMPLEX Qty: 60 0RF Hold Instructions: md stopped 2 months ago Dose Instruction: take 2 tablets by mouth once daily Rx Instructions: take 2 tablets by mouth once daily Referrals / Follow Up: Drew Vivar DO [Med Staff - Active Staff] - Within 1 Month (FOR Recurrent PE AND RV dilatation?) Mikhail Bragg MD [Med Staff - Active Staff] - Within 1 Week Rafael Hunter MD [Primary Care Provider] - Care Physician,No Primary [Non-Staff] - Disposition Disposition (needs filled in before D/C Order can be placed): Home, Self Care Charges/Coding Visit Charges Inpatient E&M: 76621 Disch Hosp >30min
[2023-06-07 15:44] VITALS: BP 120/76; PULSE 85; RESP 16; TEMP 36.4; O2SAT 95
[2023-06-07 15:49] LABS: BNP,B-Type NATRIURETIC PEPTIDE 29.2 pg/mL (0-100)
== END 2023-06-07 17:23 | disposition home or self-care (01) ==
LOC: ED 20:53 → PCU 06-07 02:04
PROVIDERS: Admitting Provider Internal Medicine; Emergency Provider Emergency Medicine; PCP Family Medicine; Visit Provider Internal Medicine
DX: I26.94 Multiple subsegmental thrombotic pulmonary emboli without acute cor pulmonale (principal); Z68.42 Body mass index [BMI] 45.0-49.9, adult; E66.01 Morbid (severe) obesity due to excess calories; D68.62 Lupus anticoagulant syndrome; D69.6 Thrombocytopenia, unspecified; D68.61 Antiphospholipid syndrome; K76.0 Fatty (change of) liver, not elsewhere classified; I10 Essential (primary) hypertension; R09.02 Hypoxemia; Z86.718 Personal history of other venous thrombosis and embolism; Z86.711 Personal history of pulmonary embolism; Z79.01 Long term (current) use of anticoagulants; Z79.899 Other long term (current) drug therapy
CPT/HCPCS: 36415; 71275; 80048; 80053; 83880; 84443; 84484; 85025; 85379; 85610; 85730; 93005; 93306; 93970; 96361; 96365; 96366; 96372; 96376; 99285; J7030; Q9957; Q9967; A4216; C8929

== ENCOUNTER → 2023-09-26 | Outpatient (CLI) | payer BC, SELFPAY ==
--- NOTE | 2023-09-26 12:30 | ECHOCS_ITS ---
Reason For Study: PULMONARY EMBOLUS Procedure This was a 2D Doppler, Color Flow transthoracic echocardiogram. The study was technically difficult. Exam performed in department. Left Ventricle Normal LV size. Left ventricular systolic function is normal. The left ventricular ejection fraction is 65 %. No regional wall motion abnormalities noted. Right Ventricle Normal RV size. Normal systolic function. Atria Normal left atrium. Normal right atrium. Mitral Valve Normal mitral valve. Tricuspid Valve Normal tricuspid valve. Mild tricuspid valve insufficiency. Pulmonary artery systolic pressure is 30 mmHg. Aortic Valve Normal aortic valve. Trisinus/trileaflet aortic valve. Pulmonic Valve Normal pulmonic valve. Great Vessels Normal aortic root. The pulmonary artery is normal size. Normal inferior vena cava. Pericardium/Pleural No pericardial effusion. Medication 22 gauge I.V. with prn adaptor inserted into right arm. Diluted definity 2ml given slow IV push to enhance endocardial definition. MMode/2D Measurements & Calculations LVIDd: 4.9 cm IVSd: 1.3 cm Ao root diam: 3.2 cm LVIDs: 3.2 cm LVPWd: 1.0 cm RVDd: 3.9 cm FS: 34.4 % LAV(MOD-bp): 49.9 ml LVAd ap4: 29.0 cm2 SV(MOD-sp4): 54.4 ml LAV(MOD-bp) Indexed: 19.4 ml/m2 LVLd ap4: 8.3 cm LAV(MOD-sp2): 46.0 ml EDV(MOD-sp4): 82.7 ml LAV(MOD-sp4): 50.3 ml EDV(sp4-el): 86.3 ml LVAs ap4: 15.1 cm2 LVLs ap4: 6.7 cm ESV(MOD-sp4): 28.3 ml ESV(sp4-el): 29.1 ml EF(MOD-sp4): 65.8 % EF(sp4-el): 66.3 % SV(sp4-el): 57.2 ml LA A4 area: 19.2 cm2 LA dimension(2D): 3.5 cm RA A4 area: 16.7 cm2 TAPSE: 2.2 cm Time Measurements MV dec time: 0.20 sec Doppler Measurements & Calculations MV E max johann: 71.1 cm/sec Lat Peak E' Johann: 15.9 cm/sec Med Peak E' Johann: 14.5 cm/sec MV A max johann: 58.3 cm/sec E/E' lat: 4.5 E/E' med: 4.9 MV E/A: 1.2 Ao V2 max: 141.5 cm/sec LV V1 max: 123.4 cm/sec PA V2 max: 93.5 cm/sec Ao max P.0 mmHg LV V1 max P.1 mmHg TR max johann: 253.5 cm/sec TR max P.7 mmHg ECHO/Echo Complete W/ Contrast Interpretation Summary Normal LV size. Left ventricular systolic function is normal. The left ventricular ejection fraction is 65 %. Pulmonary artery systolic pressure is 30 mmHg. Compared to the previous the pulmonary pressures are normal and the right ventr icular size is normal. Contrast injection was performed. Ordering Physician: Drew Vivar Referring Physician: DIONNE ZHAO Performed By: Johnna Godinez RDCS
== END | disposition home or self-care (01) ==
PROVIDERS: PCP Family Medicine; Referring Provider Internal Medicine Critical Care Medicine; Visit Provider Internal Medicine Critical Care Medicine
DX: Z86.711 Personal history of pulmonary embolism (principal)
CPT/HCPCS: 93306; Q9957; A4216; C8929